=== PATIENT | female | born 1930 | race Caucasian/White ===

== ENCOUNTER 2019-08-09 21:58 | Inpatient (IN) | payer MEDICARE ==
[~2019-08-09] VITALS: Ht 157.5 cm; Wt 64.1 kg
[~2019-08-09 21:58] MED LIST: HYDR-3240 PO; LEVO500T8 PO
[2019-08-09] MEDS ORDERED: SODIUM CHLORIDE 0.9% 1,000ML IVBOLUS ONE ×2 (22:30→23:30)
[2019-08-09 22:37] LABS: MEAN CORPUSCULAR HEMOGLOBIN 30.9 pg (27.0-34.8); MEAN CORPUSCULAR HGB CONC 32.6 g/dL (32.4-35.8); MEAN CORPUSCULAR VOLUME 94.8 fL (80-100); MEAN PLATELET VOLUME 8.4 fL (7.4-10.4); PLATELET COUNT 187 x10^3/uL (130-400); RED BLOOD COUNT 4.55 x10^6/uL (3.82-5.3); RED CELL DISTRIBUTION WIDTH 15.5 % (9.6-15.2)
[2019-08-09 22:47] LABS: ALBUMIN 2.6 g/dL (3.4-5.0); ANION GAP 9 mmol/L (5-15); CALCIUM 9.8 mg/dL (8.5-10.1); CHLORIDE 109 mmol/L (98-107)
[2019-08-09 22:53] LABS: ALANINE AMINOTRANSFERASE 203 U/L (12-78); ALKALINE PHOSPHATASE 310 U/L (45-117); BILIRUBIN,TOTAL 5.5 mg/dL (0.2-1.0); CREATININE 1.29 mg/dL (0.55-1.02); TOTAL PROTEIN 6.3 g/dL (6.4-8.2)
[2019-08-09 22:54] LABS: TROPONIN I 0.199 ng/mL (0.000-0.045)
--- NOTE | 2019-08-09 22:58 | NUR ---
BIB [facility] with general malaise and failure to thrive x a couple days. Patient had a fall a few days ago and has not "been herself" since. Per son, patient has been becoming increasingly weak for one month. Patient is obviously weak. Respirations even and unlabored.
[2019-08-09 23:00] LABS: MD YES
[2019-08-09] MEDS ORDERED: SODIUM CHLORIDE 0.9% 1,000 ML IV ONE (23:02)
[2019-08-09 23:03] LABS: BAND#(MANUAL) 6.31 x10^3/uL; BANDS%(MANUAL) 38 % (0-7); LYMPH#(MANUAL) 0.33 x10^3/uL (1-3.4); LYMPHS% (MANUAL) 2 % (22-44); MONOS% (MANUAL) 3 % (2-9); SEG#(MANUAL) 9.46 x10^3/uL (1.8-6.8); SEGS% (MANUAL) 57 % (42-75)
[2019-08-09 23:04] LABS: <PLATELET ESTIMATE> ADEQUATE; <PLT MORPHOLOGY> NORMAL PLT MORPH; ANISOCYTOSIS 1+
[2019-08-09 23:05] LABS: MICROSCOPIC INDICATED
[2019-08-09 23:06] LABS: CULTURE INDICATED? YES
[2019-08-09] MEDS ORDERED: CEFTRIAXONE PMX 1GM/50ML 50 ML ONE (23:14)
[2019-08-09] MEDS ORDERED: CEFTRIAXONE PMX 1GM/50ML 50 ML IVPB ONE (23:30)
[2019-08-10] MEDS ORDERED: PIPERACILLIN/TAZO/PMX 3.375GM 50 ML IV ONE
[2019-08-10] MEDS ORDERED: OMNIPAQUE 350 MG/ML, 100ML BOTTLE ONE (00:08)
[2019-08-10 00:19] LABS: INTERNATIONAL NORMALIZED RATIO 1.07 (0.93-1.1); PROTHROMBIN TIME 11.4 Seconds (9.6-11.5)
[2019-08-10] MEDS ORDERED: SODIUM CHLORIDE 0.9% 1,000 ML IV SCH (00:21)
[2019-08-10] MEDS ORDERED: PIPERACILLIN/TAZO/PMX 3.375GM 50 ML ONE (00:25)
[2019-08-10] MEDS ORDERED: HEPARIN 5,000 UNITS/ML, 1ML ONE (00:28)
[2019-08-10] MEDS ORDERED: HEPARIN 25,000 UNITS/250ML PMX 250 ML ONE (00:28)
[2019-08-10] MEDS ORDERED: HEPARIN 5,000 UNITS/ML, 1ML SQ SCH (00:30)
[2019-08-10] MEDS ORDERED: ONDANSETRON ODT 4 MG PO PRN (00:30)
[2019-08-10] MEDS ORDERED: HEPARIN 25,000 UNITS/250ML PMX 250 ML IV PRN ×2 (00:30→05:00)
[2019-08-10] MEDS ORDERED: HEPARIN 5,000 UNITS/ML, 1ML IV ONE (00:30)
[2019-08-10] MEDS ORDERED: morphine SULFATE 10 MG/ML, 1ML IVPush PRN (00:30)
[2019-08-10] MEDS ORDERED: PIPERACILLIN/TAZO/PMX 3.375GM 50 ML IV SCH (00:30)
[2019-08-10] MEDS ORDERED: ONDANSETRON 2MG/ML, 2ML IVPush PRN (00:30)
[2019-08-10] MEDS ORDERED: SODIUM CHLORIDE 0.9% 1,000ML IVBOLUS ONE (03:00)
--- NOTE | 2019-08-10 03:08 | NUR ---
Patient's BP decreased and HR increased. Initiated an additional liter bolus NS.
[2019-08-10 03:11] LABS: MEAN CORPUSCULAR HEMOGLOBIN 30.7 pg (27.0-34.8); MEAN CORPUSCULAR HGB CONC 32.6 g/dL (32.4-35.8); MEAN CORPUSCULAR VOLUME 94.2 fL (80-100); MEAN PLATELET VOLUME 7.2 fL (7.4-10.4); PLATELET COUNT 136 x10^3/uL (130-400); RED BLOOD COUNT 4.05 x10^6/uL (3.82-5.3)
[2019-08-10 03:17] LABS: ALANINE AMINOTRANSFERASE 210 U/L (12-78); ANION GAP 11 mmol/L (5-15); CALCIUM 8.3 mg/dL (8.5-10.1); CHLORIDE 112 mmol/L (98-107); CHOLESTEROL, TOTAL 133 mg/dL (140-239); CREATININE 1.04 mg/dL (0.55-1.02)
[2019-08-10 03:21] LABS: ALKALINE PHOSPHATASE 309 U/L (45-117); BILIRUBIN,TOTAL 5.4 mg/dL (0.2-1.0); HDL CHOL % 17 % (28-40); HDL CHOLESTEROL (DIRECT) 22 mg/dL (40-60); TROPONIN I 0.224 ng/mL (0.000-0.045)
[2019-08-10 03:24] LABS: MD YES
[2019-08-10 03:31] LABS: <PLATELET ESTIMATE> ADEQUATE; <PLT MORPHOLOGY> NORMAL PLT MORPH; ANISOCYTOSIS 1+; BAND#(MANUAL) 1.25 x10^3/uL; BANDS%(MANUAL) 29 % (0-7); LYMPH#(MANUAL) 0.39 x10^3/uL (1-3.4); LYMPHS% (MANUAL) 9 % (22-44); NRBC % (MANUAL) 1 % (0-1); SEG#(MANUAL) 2.67 x10^3/uL (1.8-6.8); SEGS% (MANUAL) 62 % (42-75)
[2019-08-10 03:49] LABS: LDL CHOLESTEROL,CALCULATED 96 mg/dL (54-169); LDL/HDL RATIO 4.4 (0.5-3.0); TRIGLYCERIDES 73 mg/dL (50-200); VLDL CHOLESTEROL 15 mg/dL (0-25)
--- NOTE | 2019-08-10 03:53 | NUR ---
Report given to KELSEY Villareal. Patient transferred to room 545.
[2019-08-10] MEDS ORDERED: HEPARIN MC SCH (04:30)
[2019-08-10] MEDS ORDERED: HEPARIN 5,000 UNITS/ML, 1ML IV PRN (05:00)
[2019-08-10] MEDS: PIPERACILLIN/TAZO/PMX 2.25GM 50 ML IV SCH ×3 (06:13→18:18)
[2019-08-10] MEDS: ENOXAPARIN 60 MG/0.6 ML SQ SCH ×3 (06:34→19:14)
[2019-08-10] MEDS ORDERED: ALBUMIN HUMAN 25% 100 ML IV ONE (07:00)
[2019-08-10] MEDS ORDERED: NOREPINEPHRINE 8 MG in SODIUM CHLORIDE 0.9% 242 ML IV PRN (08:00)
[2019-08-10 10:57] LABS: TROPONIN I 0.308 ng/mL (0.000-0.045)
[2019-08-10] MEDS ORDERED: NOREPINEPHRINE 32 MG in SODIUM CHLORIDE 0.9% 218 ML IV PRN (14:00)
[2019-08-11] MEDS: PIPERACILLIN/TAZO/PMX 2.25GM 50 ML IV SCH ×4 (00:07→18:14)
[2019-08-11 04:06] VITALS: BP 88/58
[2019-08-11 04:19] LABS: ALANINE AMINOTRANSFERASE 170 U/L (12-78); ALBUMIN 2.2 g/dL (3.4-5.0); ANION GAP 6 mmol/L (5-15); CALCIUM 8.2 mg/dL (8.5-10.1); CHLORIDE 116 mmol/L (98-107)
[2019-08-11 04:22] LABS: ALKALINE PHOSPHATASE 235 U/L (45-117); BILIRUBIN,TOTAL 7.2 mg/dL (0.2-1.0); TOTAL PROTEIN 5.2 g/dL (6.4-8.2)
[2019-08-11 04:37] LABS: MD YES; MEAN CORPUSCULAR HGB CONC 32.3 g/dL (32.4-35.8); MEAN CORPUSCULAR VOLUME 95.9 fL (80-100); MEAN PLATELET VOLUME 8.9 fL (7.4-10.4); PLATELET COUNT 111 x10^3/uL (130-400); RED BLOOD COUNT 3.74 x10^6/uL (3.82-5.3); RED CELL DISTRIBUTION WIDTH 16.5 % (9.6-15.2)
[2019-08-11 04:40] LABS: BAND#(MANUAL) 6.53 x10^3/uL; BANDS%(MANUAL) 22 % (0-7); EOS% (MANUAL) 1 % (1-7); METAMYELOCYTES# (MANUAL) 2.67 x10^3/uL (0-0); METAMYELOCYTES% (MANUAL) 9 % (0-1); MONOS#(MANUAL) 2.08 x10^3/uL (0.3-2.7); MONOS% (MANUAL) 7 % (2-9); MYELOCYTES# (MANUAL) 0.59 x10^3/uL (0-0); MYELOCYTES% (MANUAL) 2 % (0-0); SEG#(MANUAL) 17.52 x10^3/uL (1.8-6.8); SEGS% (MANUAL) 59 % (42-75)
[2019-08-11 04:41] LABS: ANISOCYTOSIS 1+; ECHINOCYTES 1+; OVALOCYTES 1+; PMNS WITH VACUOLES 2+
[2019-08-11 04:42] LABS: <PLATELET ESTIMATE> DECREASED; <PLT MORPHOLOGY> NORMAL PLT MORPH
[2019-08-11] MEDS ORDERED: SODIUM CHLORIDE 0.9%, 500ML IVBOLUS ONE (05:00)
[2019-08-11] MEDS: D5%-0.45NACL+KCL 20MEQ 1,000 ML IV SCH (08:02)
[2019-08-11] MEDS: ENOXAPARIN 80 MG/0.8 ML SQ SCH (18:14)
[2019-08-12] MEDS: PIPERACILLIN/TAZO/PMX 2.25GM 50 ML IV SCH ×4 (00:14→18:02)
[2019-08-12 02:52] LABS: ALANINE AMINOTRANSFERASE 134 U/L (12-78); ANION GAP 7 mmol/L (5-15); CALCIUM 8.2 mg/dL (8.5-10.1); CHLORIDE 117 mmol/L (98-107); CREATININE 1.13 mg/dL (0.55-1.02)
[2019-08-12 02:54] LABS: ALKALINE PHOSPHATASE 236 U/L (45-117); BILIRUBIN,TOTAL 3.2 mg/dL (0.2-1.0); TOTAL PROTEIN 5.3 g/dL (6.4-8.2)
[2019-08-12 03:17] LABS: MEAN CORPUSCULAR HEMOGLOBIN 30.2 pg (27.0-34.8); MEAN CORPUSCULAR HGB CONC 31.7 g/dL (32.4-35.8); MEAN CORPUSCULAR VOLUME 95.3 fL (80-100); MEAN PLATELET VOLUME 9.9 fL (7.4-10.4); PLATELET COUNT 94 x10^3/uL (130-400); RED BLOOD COUNT 3.97 x10^6/uL (3.82-5.3); RED CELL DISTRIBUTION WIDTH 16.5 % (9.6-15.2)
[2019-08-12 03:40] LABS: MD YES
[2019-08-12 03:45] LABS: ANISOCYTOSIS 1+; BAND#(MANUAL) 5.36 x10^3/uL; BANDS%(MANUAL) 19 % (0-7); LYMPH#(MANUAL) 1.97 x10^3/uL (1-3.4); LYMPHS% (MANUAL) 7 % (22-44); METAMYELOCYTES# (MANUAL) 0.85 x10^3/uL (0-0); METAMYELOCYTES% (MANUAL) 3 % (0-1); MONOS#(MANUAL) 0.56 x10^3/uL (0.3-2.7); MONOS% (MANUAL) 2 % (2-9); MYELOCYTES# (MANUAL) 0.28 x10^3/uL (0-0); MYELOCYTES% (MANUAL) 1 % (0-0); SEG#(MANUAL) 19.18 x10^3/uL (1.8-6.8); SEGS% (MANUAL) 68 % (42-75)
[2019-08-12 03:46] LABS: <PLATELET ESTIMATE> DECREASED; <PLT MORPHOLOGY> NORMAL PLT MORPH; ECHINOCYTES 1+; OVALOCYTES 1+; PMNS WITH VACUOLES 1+
[2019-08-12 03:56] VITALS: BP 107/54
[2019-08-12] MEDS: D5%-0.45NACL+KCL 20MEQ 1,000 ML IV SCH ×2 (05:24→18:03)
[2019-08-12] MEDS: POTASSIUM CHLORIDE 10% 40 MEQ/30 ML UDC PO SCH ×2 (09:33→22:08)
[2019-08-12] MEDS ORDERED: LIDOCAINE 1%, 10ML ONE (14:47)
[2019-08-12] MEDS ORDERED: FENTANYL PF 100 MCG/2ML ONE (15:04)
[2019-08-12] MEDS ORDERED: MIDAZOLAM 1 MG/ML, 5ML ONE (15:04)
[2019-08-12] MEDS ORDERED: FLUMAZENIL 0.1 MG/1 ML, 5ML ONE (15:04)
[2019-08-12] MEDS ORDERED: NALOXONE 1 MG/ML, 2ML ONE (15:05)
[2019-08-12] MEDS: ENOXAPARIN 80 MG/0.8 ML SQ SCH (15:51)
[2019-08-12] MEDS ORDERED: HYDROmorphone 1 MG/ML, 1ML INJ IVPush PRN (19:00)
[2019-08-13] MEDS: PIPERACILLIN/TAZO/PMX 2.25GM 50 ML IV SCH ×2 (00:07→05:48)
[2019-08-13 03:22] LABS: MEAN CORPUSCULAR HEMOGLOBIN 30.3 pg (27.0-34.8); MEAN CORPUSCULAR HGB CONC 31.6 g/dL (32.4-35.8); MEAN CORPUSCULAR VOLUME 95.8 fL (80-100); MEAN PLATELET VOLUME 9.8 fL (7.4-10.4); PLATELET COUNT 65 x10^3/uL (130-400); RED BLOOD COUNT 3.91 x10^6/uL (3.82-5.3); RED CELL DISTRIBUTION WIDTH 16.8 % (9.6-15.2)
[2019-08-13] MEDS: D5%-0.45NACL+KCL 20MEQ 1,000 ML IV SCH (03:25)
[2019-08-13 03:37] LABS: ALANINE AMINOTRANSFERASE 104 U/L (12-78); ALBUMIN 1.9 g/dL (3.4-5.0); ANION GAP 4 mmol/L (5-15); CALCIUM 8.7 mg/dL (8.5-10.1); CHLORIDE 120 mmol/L (98-107); CREATININE 1.08 mg/dL (0.55-1.02)
[2019-08-13 03:40] LABS: ALKALINE PHOSPHATASE 278 U/L (45-117); BILIRUBIN,TOTAL 1.9 mg/dL (0.2-1.0); TOTAL PROTEIN 5.3 g/dL (6.4-8.2)
[2019-08-13 03:56] VITALS: BP 109/55
[2019-08-13 04:08] LABS: MD YES
[2019-08-13 04:09] LABS: LYMPH#(MANUAL) 1.86 x10^3/uL (1-3.4); LYMPHS% (MANUAL) 12 % (22-44); METAMYELOCYTES# (MANUAL) 0.16 x10^3/uL (0-0); METAMYELOCYTES% (MANUAL) 1 % (0-1); MONOS#(MANUAL) 0.47 x10^3/uL (0.3-2.7); MONOS% (MANUAL) 3 % (2-9); NRBC % (MANUAL) 1 % (0-1); SEG#(MANUAL) 13.02 x10^3/uL (1.8-6.8); SEGS% (MANUAL) 84 % (42-75)
[2019-08-13 04:10] LABS: <PLATELET ESTIMATE> DECREASED; <PLT MORPHOLOGY> NORMAL PLT MORPH; ANISOCYTOSIS 1+; OVALOCYTES 1+
[2019-08-13] MEDS: CEFTRIAXONE PMX 2GM/50ML 50 ML IV SCH (08:20)
--- NOTE | 2019-08-13 11:39 | NUR ---
FULL LIQUID/NTL Discharge recommendations to SNF with ongoing skilled [employer] services Addendum: 08/13/19 at [address] Amended: Links added.
[2019-08-13 16:52] VITALS: BP 156/105
[2019-08-13] MEDS ORDERED: LABETALOL 5MG/ML, 20ML IVPush PRN (18:00)
[2019-08-13] MEDS: ENOXAPARIN 80 MG/0.8 ML SQ SCH (18:01)
[2019-08-13 20:31] VITALS: BP 149/89
[2019-08-14 02:36] VITALS: BP 149/87
[2019-08-14] MEDS: CEFTRIAXONE PMX 2GM/50ML 50 ML IV SCH (06:21)
[2019-08-14 07:26] VITALS: BP 157/95
[2019-08-14] MEDS: METRONIDAZOLE PMX 500MG/100ML 100 ML IV SCH ×2 (08:44→16:18)
[2019-08-14] MEDS: ENOXAPARIN 80 MG/0.8 ML SQ SCH (08:52)
[2019-08-14 13:45] VITALS: BP 159/95
[2019-08-14 19:28] VITALS: BP 155/88
[2019-08-15 02:16] VITALS: BP 144/89
[2019-08-15] MEDS: METRONIDAZOLE PMX 500MG/100ML 100 ML IV SCH ×3 (04:34→21:10)
[2019-08-15] MEDS: CEFTRIAXONE PMX 2GM/50ML 50 ML IV SCH (06:02)
[2019-08-15 08:06] VITALS: BP 137/78
[2019-08-15 08:51] LABS: MEAN CORPUSCULAR HEMOGLOBIN 30.7 pg (27.0-34.8); MEAN CORPUSCULAR HGB CONC 32.8 g/dL (32.4-35.8); MEAN CORPUSCULAR VOLUME 93.6 fL (80-100); MEAN PLATELET VOLUME 10.4 fL (7.4-10.4); PLATELET COUNT 85 x10^3/uL (130-400); RED CELL DISTRIBUTION WIDTH 15.9 % (9.6-15.2)
[2019-08-15 08:57] LABS: ANION GAP 5 mmol/L (5-15); CALCIUM 9.1 mg/dL (8.5-10.1); CHLORIDE 112 mmol/L (98-107); CREATININE 0.88 mg/dL (0.55-1.02)
[2019-08-15 09:13] LABS: MD YES
[2019-08-15 10:00] LABS: LYMPH#(MANUAL) 1.27 x10^3/uL (1-3.4); LYMPHS% (MANUAL) 14 % (22-44); METAMYELOCYTES# (MANUAL) 0.27 x10^3/uL (0-0); METAMYELOCYTES% (MANUAL) 3 % (0-1); MONOS#(MANUAL) 0.73 x10^3/uL (0.3-2.7); MONOS% (MANUAL) 8 % (2-9); MYELOCYTES# (MANUAL) 0.46 x10^3/uL (0-0); MYELOCYTES% (MANUAL) 5 % (0-0); SEG#(MANUAL) 6.37 x10^3/uL (1.8-6.8); SEGS% (MANUAL) 70 % (42-75)
[2019-08-15 10:01] LABS: <PLATELET ESTIMATE> DECREASED; <PLT MORPHOLOGY> NORMAL PLT MORPH; ANISOCYTOSIS 1+; OVALOCYTES 1+
[2019-08-15] MEDS: ENOXAPARIN 80 MG/0.8 ML SQ SCH (10:24)
[2019-08-15 15:21] VITALS: BP 166/100
[2019-08-15 19:44] VITALS: BP 145/84
[2019-08-15] MEDS: ENOXAPARIN 60 MG/0.6 ML SQ SCH (21:10)
[2019-08-16 02:53] VITALS: BP 134/89
[2019-08-16] MEDS: METRONIDAZOLE PMX 500MG/100ML 100 ML IV SCH ×2 (04:33→14:03)
[2019-08-16 05:07] LABS: ANION GAP 5 mmol/L (5-15); CALCIUM 8.6 mg/dL (8.5-10.1); CHLORIDE 112 mmol/L (98-107); CREATININE 0.66 mg/dL (0.55-1.02)
[2019-08-16 05:13] LABS: MEAN CORPUSCULAR HEMOGLOBIN 30.4 pg (27.0-34.8); MEAN CORPUSCULAR HGB CONC 32.7 g/dL (32.4-35.8); MEAN PLATELET VOLUME 10.6 fL (7.4-10.4); PLATELET COUNT 100 x10^3/uL (130-400); RED CELL DISTRIBUTION WIDTH 16.1 % (9.6-15.2)
[2019-08-16 05:59] LABS: MD YES
[2019-08-16] MEDS: CEFTRIAXONE PMX 2GM/50ML 50 ML IV SCH (06:01)
[2019-08-16 06:13] LABS: <PLATELET ESTIMATE> DECREASED; <PLT MORPHOLOGY> NORMAL PLT MORPH; ANISOCYTOSIS 1+; BAND#(MANUAL) 0.09 x10^3/uL; BANDS%(MANUAL) 1 % (0-7); EOS#(MANUAL) 0.38 x10^3/uL (0.0-0.4); EOS% (MANUAL) 4 % (1-7); LYMPH#(MANUAL) 1.88 x10^3/uL (1-3.4); LYMPHS% (MANUAL) 20 % (22-44); METAMYELOCYTES# (MANUAL) 0.09 x10^3/uL (0-0); METAMYELOCYTES% (MANUAL) 1 % (0-1); MONOS#(MANUAL) 0.47 x10^3/uL (0.3-2.7); MONOS% (MANUAL) 5 % (2-9); MYELOCYTES# (MANUAL) 0.19 x10^3/uL (0-0); MYELOCYTES% (MANUAL) 2 % (0-0); OVALOCYTES 1+; SEGS% (MANUAL) 67 % (42-75)
[2019-08-16 07:33] VITALS: BP 145/80
[2019-08-16] MEDS: ENOXAPARIN 60 MG/0.6 ML SQ SCH (09:57)
[2019-08-16 14:05] VITALS: BP 132/96
[2019-08-16 19:34] VITALS: BP 144/87
[2019-08-16] MEDS: LINEZOLID 600 MG TABLET PO SCH (19:43)
[2019-08-16] MEDS: APIXABAN 5 MG TABLET PO SCH (19:43)
[2019-08-16] MEDS ORDERED: APIXABAN 2.5 MG TABLET PO SCH (21:00)
[2019-08-17 00:43] VITALS: BP 127/80
[2019-08-17] MEDS: CEFTRIAXONE PMX 2GM/50ML 50 ML IV SCH (06:18)
[2019-08-17 07:14] VITALS: BP 131/84
[2019-08-17] MEDS: LINEZOLID 600 MG TABLET PO SCH ×2 (10:20→22:49)
[2019-08-17] MEDS: APIXABAN 5 MG TABLET PO SCH ×2 (10:20→22:49)
[2019-08-17 14:04] VITALS: BP 142/78
[2019-08-17 19:45] VITALS: BP 119/78
[2019-08-18 00:28] VITALS: BP 116/77
[2019-08-18] MEDS: CEFTRIAXONE PMX 2GM/50ML 50 ML IV SCH (06:27)
[2019-08-18 07:48] VITALS: BP 138/84
[2019-08-18] MEDS: LINEZOLID 600 MG TABLET PO SCH (09:37)
[2019-08-18] MEDS: APIXABAN 5 MG TABLET PO SCH (09:37)
[2019-08-18] MEDS ORDERED: CEFT2PIG2 INTVESIC (10:51)
[2019-08-18] MEDS ORDERED: LINE600T15 PO (10:51)
[2019-08-18] MEDS ORDERED: APIX5TAB PO (10:51)
[2019-08-18] MEDS ORDERED: TRAM50TA2 PO (10:51)
== END 2019-08-18 14:26 | DRG 871 ==
LOC: ED 22:55 → EDIP 08-10 00:23 → CCU 08-10 03:44 → 3N 08-13 12:39
PROVIDERS: ADMIT Internal Medicine; ATTEND Hospitalist
PROC: 0T9B70Z Drainage of Bladder with Drainage Device, Via Natural or Artificial Opening (ICD-10-PCS; principal; 2019-08-10)
PROC: 02HV33Z Insertion of Infusion Device into Superior Vena Cava, Percutaneous Approach (ICD-10-PCS; 2019-08-10)
PROC: B548ZZA Ultrasonography of Superior Vena Cava, Guidance (ICD-10-PCS; 2019-08-10)
PROC: 0F9430Z Drainage of Gallbladder with Drainage Device, Percutaneous Approach (ICD-10-PCS; 2019-08-12)
DX: A41.9 Sepsis, unspecified organism (principal); N17.0 Acute kidney failure with tubular necrosis; E43 Unspecified severe protein-calorie malnutrition; G93.41 Metabolic encephalopathy; I21.A1 Myocardial infarction type 2; I26.99 Other pulmonary embolism without acute cor pulmonale; R65.21 Severe sepsis with septic shock; K80.63 Calculus of gallbladder and bile duct with acute cholecystitis with obstruction; N10 Acute pyelonephritis; B95.2 Enterococcus as the cause of diseases classified elsewhere; B96.20 Unspecified Escherichia coli [E. coli] as the cause of diseases classified elsewhere; D69.6 Thrombocytopenia, unspecified; E78.5 Hyperlipidemia, unspecified; E86.0 Dehydration; I10 Essential (primary) hypertension; I71.4 Abdominal aortic aneurysm, without rupture; I72.3 Aneurysm of iliac artery; K63.9 Disease of intestine, unspecified; K72.90 Hepatic failure, unspecified without coma; K82.8 Other specified diseases of gallbladder; M81.0 Age-related osteoporosis without current pathological fracture; R32 Unspecified urinary incontinence; Z79.01 Long term (current) use of anticoagulants; Z96.653 Presence of artificial knee joint, bilateral
CPT/HCPCS: 36415; 47490; 70450; 71045; 71275; 72192; 74018; 74175; 74181; 74230; 75989; 76700; 76942; 80048; 80053; 80061; 80307; 81001; 82140; 82378; 82533; 83036; 83605; 83690; 83735; 84100; 84145; 84443; 84484; 85025; 85520; 85610; 85730; 87040; 87070; 87075; 87077; 87081; 87086; 87186; 87205; 93005; 93306; 96374; 96375; 99156; 99157; 99291; C1894; G0378; J0696; J1644; J1650; J2250; J2543; J3010; P9047; Q9967; C1729; C1769; J2310; J3480; J7030; J7040; J7050